=== PATIENT | male | born 1965 | race Caucasian/White ===

== ENCOUNTER 2020-09-06 03:38 | Emergency (ER) | payer BC, OTHER ==
[~2020-09-06] VITALS: Ht 177.8 cm; Wt 81.6 kg
[2020-09-06] MEDS ORDERED: ONDANSETRON 4 MG/2 ML (SDV) Z0FRAN IVP ONE (04:00)
[2020-09-06] MEDS ORDERED: LIDOCAINE 2% VISCOUS 15 ML UDC PO ONE (04:00)
[2020-09-06] MEDS ORDERED: ANTACID SUSP 30 ML UDC (MYLANTA) PO ONE (04:00)
--- NOTE | 2020-09-06 04:01 | ED Abdominal Pain ---
General Chief Complaint: Abdominal/GI Problems Stated Complaint: LIGHT HEADED Nursing Triage Note: PT AMBULATE TO ROOM FS01 WITH C/O INDEGESTION STARTING THIS MORNING. PT REPORTS [place]. PT REPORTS HE DOES NOT USUALLY HAVE INDEGESTION SO HE BECAME CONCERNED. PT DENIES N/V/D, CHEST PAIN, AND SOA. PT STATES IT IS "PROBABLY ALL IN MY HEAD". Sepsis Screen: No Definite Risk Source of Information: Patient, RN/MD, RN Notes Reviewed Exam Limitations: No Limitations History of Present Illness Date Seen by Provider: Sep 06, 2020 Time Seen by Provider: 03:40 Initial Comments This patient is a 54-year-old male that presents to the emergency department concerning for indigestion or could be heart issues. Patient states she just don't know. Patient states he is visiting from out of town on a plane trip and states she just feels like he has an issue substernally in the epigastric area. Patient states he normally doesn't have issues with indigestion but this morning it does not seem like this just something was not right he's concerned he could be having a heart attack. Patient denies chest pain denies a history of chest pain but given his age thinks it could be something serious to want he thinks. Patient is kind of vague in his complaints requesting a medical screening exam to rule out any cardiac issues. We'll do medical evaluation treatment is needed Timing/Duration: 4-6 Hours Severity/Quality: Moderate Location: Epigastric Radiation: No Radiation Associated Symptoms: Heartburn Allergies and Home Medications Allergies Coded Allergies: No Known Allergies (Verified Allergy, Unknown, 09/06/20) Patient Home Medication List Home Medication List Reviewed: Yes Review of Systems Review of Systems Constitutional: No no symptoms reported; see HPI; No chills, No diaphoresis, No dizziness, No fever, No malaise, No weakness, No weight gain, No weight loss, No other EENTM: No No Symptoms Reported, No See HPI, No Blurred Vision, No Double Vision, No Eye Pain, No Eye Tearing, No Ear Drainage, No Ear Pain, No Mouth Pain, No Mouth Swelling, No Nose Congestion, No Nose Pain, No Throat Pain, No Throat Swelling, No Other Respiratory: Denies No Symptoms Reported, Denies See HPI, Denies Cough, Denies Orthopnea, Denies Shortness of Air, Denies SOA With Exertion, Denies SOA at Rest, Denies Stridor, Denies Wheezing, Denies Other Cardiovascular: Denies No Symptoms Reported; See HPI, Chest Pain; Denies Edema, Denies Irregular Heart Rate, Denies Lightheadedness, Denies Palpitations, Denies Syncope, Denies Other Gastrointestinal: Denies No Symptoms Reported; See HPI; Denies Abdomen Distended; Abdominal Pain; Denies Blood Streaked Stools, Denies Constipated, Denies Diarrhea, Denies Difficulty Swallowing, Denies Nausea, Denies Poor Appetite, Denies Poor Fluid Intake, Denies Rectal Bleeding, Denies Vomiting, Denies Other Genitourinary: Denies No Symptoms Reported, Denies See HPI, Denies Burning, Denies Discharge, Denies Drainage, Denies Frequency, Denies Flank Pain, Denies Hematuria, Denies Incontinence, Denies Pain, Denies Urgency, Denies Other Musculoskeletal: No no symptoms reported, No see HPI, No back pain, No gout, No joint pain, No joint swelling, No muscle pain, No muscle stiffness, No muscle cramps, No muscle twitching, No muscle weakness, No neck pain, No other Skin: No no symptoms reported, No see HPI, No change in color, No change in hair/nails, No dryness, No hx of skin cancer, No lesions, No lumps, No pruritus, No rash, No other Psychiatric/Neurological: Denies No Symptoms Reported, Denies See HPI, Denies Anxiety, Denies Depressed, Denies Emotional Problems, Denies Headache, Denies Numbness, Denies Paresthesia, Denies Pre-Existing Deficit, Denies Seizure, Denies Tingling, Denies Tremors, Denies Weakness, Denies Other Endocrine: Denies No Symptoms Reported, Denies See HPI, Denies Excessive Sweating, Denies Flushing, Denies Intolerance to Cold, Denies Intolerance to Heat, Denies Increased Hunger, Denies Increased Thrist, Denies Increased Urine, Denies Unexplained Weight Gain, Denies Unexplaned Weight Loss, Denies Other All Other Systems Reviewed Negative Unless Noted: Yes Past Lylxkpz-Jkqqkt-Tymigy Hx Patient Social History Alcohol Use: Occasionally Uses Recreational Drug Use: No Smoking Status: Never a Smoker 2nd Hand Smoke Exposure: No Recent Foreign Travel: No Contact w/Someone Who Travel: No Recent Infectious Disease Expo: No Recent Hopitalizations: No Physical Abuse: No Sexual Abuse: No Mistreated: No Fear: No Seasonal Allergies Seasonal Allergies: No Past Medical History Surgeries: No Respiratory: No Cardiac: No Neurological: No Genitourinary: No Gastrointestinal: No Musculoskeletal: No Endocrine: No HEENT: No Cancer: No Psychosocial: No Integumentary: No Blood Disorders: No Physical Exam Vital Signs Vital Signs - First Documented 09/06/20 03:49 Temp 36.9 Pulse 69 Resp 19 B/P (MAP) 155/93 (113) O2 Delivery Room Air Capillary Refill : Less Than 3 Seconds Height/Weight/BMI Height: '" Weight: lbs. oz. kg; 25.00 BMI Method: General Appearance: WD/WN, no apparent distress Respiratory: chest non-tender, lungs clear, normal breath sounds, no respiratory distress, no accessory muscle use Cardiovascular: normal peripheral pulses, regular rate, rhythm, no edema, no gallop, no JVD, no murmur Gastrointestinal: normal bowel sounds, non tender, soft, no organomegaly, no pulsatile mass Extremities: normal range of motion, non-tender, normal inspection, no pedal edema, no calf tenderness, normal capillary refill, pelvis stable Skin: normal color, warm/dry Progress/Results/Core Measures Results/Orders Lab Results Laboratory Tests Test 09/06/20 04:05 Range/Units White Blood Count 5.5 4.3-11.0 10^3/uL Red Blood Count 5.30 4.35-5.85 10^6/uL Hemoglobin 15.4 13.3-17.7 G/DL Hematocrit 46 40-54 % Mean Corpuscular Volume 86 80-99 FL Mean Corpuscular Hemoglobin 29 25-34 PG Mean Corpuscular Hemoglobin Concent 34 32-36 G/DL Red Cell Distribution Width 12.8 10.0-14.5 % Platelet Count 155 130-400 10^3/uL Mean Platelet Volume 10.4 7.4-10.4 FL Immature Granulocyte % (Auto) 0 % Neutrophils (%) (Auto) 65 42-75 % Lymphocytes (%) (Auto) 22 12-44 % Monocytes (%) (Auto) 10 0-12 % Eosinophils (%) (Auto) 3 0-10 % Basophils (%) (Auto) 1 0-10 % Neutrophils # (Auto) 3.6 1.8-7.8 X 10^3 Lymphocytes # (Auto) 1.2 1.0-4.0 X 10^3 Monocytes # (Auto) 0.5 0.0-1.0 X 10^3 Eosinophils # (Auto) 0.2 0.0-0.3 10^3/uL Basophils # (Auto) 0.0 0.0-0.1 10^3/uL Immature Granulocyte # (Auto) 0.0 0.0-0.1 10^3/uL Sodium Level 140 135-145 MMOL/L Potassium Level 3.6 3.6-5.0 MMOL/L Chloride Level 105 98-107 MMOL/L Carbon Dioxide Level 25 21-32 MMOL/L Anion Gap 10 5-14 MMOL/L Blood Urea Nitrogen 15 7-18 MG/DL Creatinine 1.34 H 0.60-1.30 MG/DL Estimat Glomerular Filtration Rate 56 BUN/Creatinine Ratio 11 Glucose Level 149 H 70-105 MG/DL Calcium Level 8.8 8.5-10.1 MG/DL Corrected Calcium 8.7 8.5-10.1 MG/DL Total Bilirubin 0.4 0.1-1.0 MG/DL Aspartate Amino Transf (AST/SGOT) 19 5-34 U/L Alanine Aminotransferase (ALT/SGPT) 19 0-55 U/L Alkaline Phosphatase 89 40-136 U/L Troponin I < 0.30 <0.30 NG/ML Total Protein 6.1 L 6.4-8.2 GM/DL Albumin 4.1 3.2-4.5 GM/DL My Orders Orders - SHANI ROMERO MD Troponin I Fs (09/06/20 03:56) Cbc With Automated Diff (09/06/20 03:56) Ekg Tracing (09/06/20 03:56) Chest 1 View Ap/Pa Only (09/06/20 03:56) Ed Iv/Invasive Line Start (09/06/20 03:56) Comprehensive Metabolic Panel (09/06/20 03:56) Ondansetron Injection (Zofran Injectio (09/06/20 04:00) Antacid Suspension (Mylanta Suspension (09/06/20 04:00) Lidocaine 2% Viscous 15 Ml (Xylocaine Vi (09/06/20 04:00) Medications Given in ED Current Medications Medications Dose Ordered Sig/Biju Route Start Time Stop Time Status Last Admin Dose Admin Al Hydrox/Mg Hydrox/Simethicone 30 ml ONCE ONCE PO 09/06/20 04:00 09/06/20 04:01 DC 09/06/20 04:07 30 ML Lidocaine HCl 5 ml ONCE ONCE PO 09/06/20 04:00 09/06/20 04:01 DC 09/06/20 04:07 5 ML Ondansetron HCl 4 mg ONCE ONCE IVP 09/06/20 04:00 09/06/20 04:01 DC 09/06/20 04:07 4 MG Vital Signs/I&O 09/06/20 03:49 Temp 36.9 Pulse 69 Resp 19 B/P (MAP) 155/93 (113) O2 Delivery Room Air Blood Pressure Mean: 113 Progress Progress Note : Time: 04:45 Progress Note Negative evaluation in the emergency department discussed dyspepsia. Patient given instructions patient discharged Initial ECG Impression Date: Sep 06, 2020 Initial ECG Impression Time: 03:57 Initial ECG Rate: 94 Initial ECG Rhythm: Normal Sinus Initial ECG Intervals: Normal Initial ECG Impression: Nonspecific Changes Comment Sinus rhythm with a heart rate of 94 nonspecific EKG changes. Departure Impression Primary Impression: Dyspepsia Disposition: 01 HOME, SELF-CARE Condition: Stable Departure-Patient Inst. Decision time for Depature: 04:46 Referrals: NO,LOCAL PHYSICIAN (PCP) Primary Care Physician Patient Instructions: Dyspepsia (DC) Add. Discharge Instructions: Encourage by mouth fluids. tums as needed. Follow-up with PCP in 2-3 days All discharge instructions reviewed with patient and/or family. Voiced understanding. SHANI ROMERO MD Sep 06, 2020 04:01
[2020-09-06 04:27] LABS: WHITE BLOOD COUNT 5.5 10^3/uL (4.3-11.0)
[2020-09-06 04:28] LABS: BASOPHILS % (AUTO) 1 % (0-10); EOSINOPHILS # (AUTO) 0.2 10^3/uL (0.0-0.3); EOSINOPHILS % (AUTO) 3 % (0-10); HEMATOCRIT 46 % (40-54); HEMOGLOBIN 15.4 G/DL (13.3-17.7); LYMPHOCYTES # (AUTO) 1.2 X 10^3 (1.0-4.0); LYMPHOCYTES % (AUTO) 22 % (12-44); MEAN CORPUSCULAR HEMOGLOBIN 29 PG (25-34); MEAN CORPUSCULAR HGB CONC 34 G/DL (32-36); MEAN CORPUSCULAR VOLUME 86 FL (80-99); MEAN PLATELET VOLUME 10.4 FL (7.4-10.4); MONOCYTES # (AUTO) 0.5 X 10^3 (0.0-1.0); MONOCYTES % (AUTO) 10 % (0-12); NEUTROPHILS # (AUTO) 3.6 X 10^3 (1.8-7.8); NEUTROPHILS % (AUTO) 65 % (42-75); PLATELET COUNT 155 10^3/uL (130-400)
[2020-09-06 04:42] LABS: CHLORIDE 105 MMOL/L (98-107); POTASSIUM 3.6 MMOL/L (3.6-5.0); SODIUM 140 MMOL/L (135-145)
[2020-09-06 04:43] LABS: ALANINE AMINOTRANSFERASE 19 U/L (0-55); ALBUMIN 4.1 GM/DL (3.2-4.5); ALKALINE PHOSPHATASE 89 U/L (40-136); BILIRUBIN,TOTAL 0.4 MG/DL (0.1-1.0); BUN/CREATININE RATIO 11; CALCIUM 8.8 MG/DL (8.5-10.1); CARBON DIOXIDE 25 MMOL/L (21-32); CREATININE SERUM 1.34 MG/DL (0.60-1.30); GFR ESTIMATED 56; GLUCOSE 149 MG/DL (70-105); TOTAL PROTEIN 6.1 GM/DL (6.4-8.2)
[2020-09-06 04:50] VITALS: BP 131/82
--- NOTE | 2020-09-06 06:42 | Diagnostic Imaging Report ---
INDICATION: Chest pain Portable AP view of the chest is obtained. COMPARISON: No previous study is available for comparison at this time. FINDINGS: Heart size and pulmonary vasculature are within normal limits, and the lungs are clear, bilaterally. There are probable tiny calcified granulomas in the right hilum and lung. IMPRESSION: Unremarkable chest. Dictated by: Dictated on workstation # [id number]
== END 2020-09-06 04:50 | disposition home or self-care (01) ==
LOC: ER FS 03:41
DX: R10.13 Epigastric pain (principal)
CPT/HCPCS: 36415; 71045; 80053; 84484; 85025; 93005